=== PATIENT | male | born 1985 | race Caucasian/White ===

== ENCOUNTER 2022-06-11 22:25 | Emergency (ER) | payer OTHER ==
[~2022-06-11] VITALS: Ht 182.9 cm; Wt 105.7 kg
[2022-06-11 22:34] VITALS: BP 166/90
--- NOTE | 2022-06-11 22:39 | NUR ---
PT TO LOBBY
--- NOTE | 2022-06-11 23:00 | NUR ---
PT AMBULATES WITH STEADY GAIT TO BED 11
--- NOTE | 2022-06-11 23:13 | NUR ---
DR. HUSSEIN AT BEDSIDE WITH PT
[2022-06-11] MEDS ORDERED: MORPHINE SULFATE 4 MG/ML SYR IVP ONE ×2 (23:15→23:20)
[2022-06-11] MEDS ORDERED: oxyCODONE/APAP 5/325 MG 1 TAB TAB PO ONE (23:15)
[2022-06-11] MEDS ORDERED: ONDANSETRON 4 MG/2 ML VIAL IVP ONE (23:20)
--- NOTE | 2022-06-11 23:51 | NUR ---
X-Ray at bedside.
[2022-06-12] MEDS ORDERED: ACET-9527 PO (00:29)
[2022-06-12] MEDS ORDERED: IBUP-2213 PO (00:29)
[2022-06-12] MEDS ORDERED: ONDA-188 PO (00:29)
[2022-06-12 00:50] VITALS: BP 126/62
--- NOTE | 2022-06-12 00:50 | NUR ---
Patient discharged with v/s stable. Written and verbal after care instructions given and explained. Patient alert, oriented and verbalized understanding of instructions. Ambulatory with steady gait. All questions addressed prior to discharge. ID band removed. Patient advised to follow up with PMD. Rx OF HYDROCODONE, MOTRIN, ZOFRAN given. Patient educated on indication of medication including possible reaction and side effects. Opportunity to ask questions provided and answered.
== END 2022-06-12 00:50 | disposition home or self-care (01) ==
LOC: MED 22:25
DX: S52.022A Displaced fracture of olecranon process without intraarticular extension of left ulna, initial encounter for closed fracture (principal); Z79.899 Other long term (current) drug therapy; W19.XXXA Unspecified fall, initial encounter; Y93.89 Activity, other specified; Y92.89 Other specified places as the place of occurrence of the external cause; Y99.8 Other external cause status
CPT/HCPCS: 29105; 73060; 73080; 73090; 96374; 96375; 99284; J2270; J2405; Q0092

== ENCOUNTER 2022-06-17 18:56 | Emergency (ER) | payer OTHER ==
[~2022-06-17] VITALS: Ht 177.8 cm; Wt 99.8 kg
[~2022-06-17 18:56] MED LIST: ACET-9527 PO; IBUP-2213 PO; ONDA-188 PO
[2022-06-17 19:45] VITALS: BP 140/90
--- NOTE | 2022-06-17 19:48 | NUR ---
TO LOBBY A/W BED AMBULATORY
--- NOTE | 2022-06-17 20:20 | NUR ---
SEEN AND EXAMINED BY [facility]
--- NOTE | 2022-06-17 22:00 | NUR ---
ALL RESULTS BACK NOTED BY ERMD AND FOR D/C
[2022-06-17 22:20] VITALS: BP 121/78
--- NOTE | 2022-06-17 22:20 | NUR ---
Patient discharged with v/s stable. Written and verbal after care instructions given and explained. Patient verbalized understanding. Ambulatory with steady gait. All questions addressed prior to discharge. Advised to follow up with PMD.
== END 2022-06-17 22:20 | disposition home or self-care (01) ==
LOC: MED 18:56
DX: M25.472 Effusion, left ankle (principal); Z79.899 Other long term (current) drug therapy
CPT/HCPCS: 73610; 73630; 93971; 99284; Q0092

== ENCOUNTER 2022-10-30 17:43 | Emergency (ER) | payer MEDICAID, OTHER ==
[~2022-10-30] VITALS: Ht 180.3 cm; Wt 102.1 kg
[2022-10-30 17:46] VITALS: BP 159/107
--- NOTE | 2022-10-30 17:53 | NUR ---
pt ambulatory to lobby.
== END 2022-10-30 20:10 | disposition left against medical advice (07) ==
LOC: MED 17:43
DX: S69.81XA Other specified injuries of right wrist, hand and finger(s), initial encounter (principal); Z53.21 Procedure and treatment not carried out due to patient leaving prior to being seen by health care provider; X58.XXXA Exposure to other specified factors, initial encounter; Y93.89 Activity, other specified; Y92.89 Other specified places as the place of occurrence of the external cause; Y99.8 Other external cause status
CPT/HCPCS: 99281

== ENCOUNTER 2022-10-30 21:26 | Emergency (ER) | payer MEDICAID ==
--- NOTE | 2022-10-30 22:02 | NUR ---
Called no show in lobby or outside.
--- NOTE | 2022-10-30 22:36 | NUR ---
Patient left before triage.
--- NOTE | 2022-10-30 22:36 | NUR ---
Called no show in lobby or outside.
== END 2022-10-30 22:02 | disposition left against medical advice (07) ==
LOC: MED 21:26
DX: M79.646 Pain in unspecified finger(s) (principal); Z53.21 Procedure and treatment not carried out due to patient leaving prior to being seen by health care provider

== ENCOUNTER 2024-03-11 23:10 | Emergency (ER) | payer MEDICAID ==
[~2024-03-11] VITALS: Ht 177.8 cm; Wt 90.7 kg
[2024-03-11 23:10] VITALS: BP 175/103; PULSE 94; RESP 14; TEMP 97.1; O2SAT 100
== END 2024-03-11 23:33 | disposition left against medical advice (07) ==
LOC: MED 23:10
DX: T40.414A Poisoning by fentanyl or fentanyl analogs, undetermined, initial encounter (principal); Z79.899 Other long term (current) drug therapy; Y92.89 Other specified places as the place of occurrence of the external cause
CPT/HCPCS: 99283